=== PATIENT | female | born 1935 | race Caucasian/White ===

== ENCOUNTER 2021-01-12 13:01 | Inpatient (IN) ==
[2021-01-12 15:27] LABS: ABS Basophils 0.1 10^3/ul (0-0.2); ABS Eosinophils 0.1 10^3/ul (0-0.6); ABS Lymphocytes 1.1 10^3/ul (1.0-4.8); ABS Monocytes 0.7 10^3/ul (0-0.8); ABS Neutrophils 17.1 10^3/ul (1.5-7.7); Eosinophil % 0.5 %; Hematocrit 38 % (35-47); Hemoglobin 12.7 g/dL (12.0-16.0); Lymphocyte % 5.5 %; Mean Corpuscular HGB Conc 34 g/dL (31-36); Mean Corpuscular Hemoglobin 31 pg (27-31); Mean Corpuscular Volume 92 fL (80-97); Mean Platelet Volume 9.7 fL (7.4-10.4); Platelet Count 226 10^3/uL (150-450); Red Blood Count 4.14 10^6 /uL (3.70-4.87); Red Cell Distribution Width 15 % (10-15)
[2021-01-12 15:41] LABS: Albumin 4.5 g/dL (3.2-5.2); Albumin/Globulin Ratio 1.7 (1-3); Calcium 9.4 mg/dL (8.6-10.3); EGFR Non-African American 88.4 (>60); Globulin 2.6 g/dL (2-4); Potassium 3.9 mmol/L (3.5-5.0); Total Bilirubin 0.5 mg/dL (0.2-1.0); Total Protein 7.1 g/dL (6.4-8.9)
[2021-01-12] MEDS ORDERED: HYDROcodone/ACETAMIN 5/325 mg TAB PO ONE (16:18)
[2021-01-12] MEDS ORDERED: Albuterol HFA INHALER 8 gm MDI INH PRN (17:17)
[2021-01-12] MEDS: Morphine 2 MG/ML SYRINGE IV PRN (19:10)
[2021-01-12 19:31] LABS: Urine Appearance Clear; Urine Bilirubin Negative (Negative); Urine Blood Negative (Negative); Urine Color Straw; Urine Glucose Negative (Negative); Urine Ketones 2+ (Negative); Urine Nitrite Negative (Negative); Urine Protein Negative (Negative); Urine Specific Gravity 1.009 (1.002-1.030); Urine Urobilinogen Negative (Negative)
[2021-01-12] MEDS: PTO:Multivitamins/Mins AREDS2 (NF) CAP PO SCH (20:34)
[2021-01-12] MEDS: Mometasone 220 MCG MDI INH SCH (20:34)
[2021-01-12] MEDS: Enoxaparin 40 MG/0.4 ML SYR SUBCUT SCH (21:13)
[2021-01-12] MEDS: HYDROcodone/ACETAMIN 5/325 mg TAB PO PRN (23:55)
[2021-01-13] MEDS: Morphine 2 MG/ML SYRINGE IV PRN ×2 (01:59→10:15)
[2021-01-13 04:34] LABS: ABS Lymphocytes 1.2 10^3/ul (1.0-4.8); ABS Monocytes 0.6 10^3/ul (0-0.8); ABS Neutrophils 7.8 10^3/ul (1.5-7.7); Eosinophil % 0.3 %; Hematocrit 33 % (35-47); Hemoglobin 11.5 g/dL (12.0-16.0); Lymphocyte % 12.7 %; Mean Corpuscular HGB Conc 35 g/dL (31-36); Mean Corpuscular Hemoglobin 32 pg (27-31); Mean Corpuscular Volume 91 fL (80-97); Mean Platelet Volume 9.4 fL (7.4-10.4); Platelet Count 193 10^3/uL (150-450); Red Blood Count 3.63 10^6 /uL (3.70-4.87); Red Cell Distribution Width 15 % (10-15); White Blood Count 9.8 10^3/uL (3.5-10.8)
[2021-01-13] MEDS ORDERED: Magnesium Hydroxide LIQ 30 ML UDC PO PRN (07:23)
[2021-01-13] MEDS ORDERED: Senna TAB 8.6 mg TAB PO PRN (07:23)
[2021-01-13] MEDS: HYDROcodone/ACETAMIN 5/325 mg TAB PO PRN ×3 (07:40→20:03)
[2021-01-13] MEDS: Aspirin EC 81 mg TAB.EC (enteric coated) PO SCH ×2 (09:05→15:18)
[2021-01-13] MEDS: RALOXIFENE 60 MG PO SCH (09:05)
[2021-01-13] MEDS: PTO:Multivitamins/Mins AREDS2 (NF) CAP PO SCH ×2 (09:06→21:10)
[2021-01-13] MEDS: Polyethylene Glycol 3350 17 GM PACKET PO SCH (17:35)
[2021-01-13] MEDS: Enoxaparin 40 MG/0.4 ML SYR SUBCUT SCH (17:36)
[2021-01-13] MEDS: Mometasone 220 MCG MDI INH SCH (21:45)
[2021-01-14] MEDS: HYDROcodone/ACETAMIN 5/325 mg TAB PO PRN ×6 (01:53→22:59)
[2021-01-14] MEDS: Calcium/Vitamin D TAB 250/125 TAB PO SCH (08:10)
[2021-01-14] MEDS: RALOXIFENE 60 MG PO SCH (08:11)
[2021-01-14] MEDS: Aspirin EC 81 mg TAB.EC (enteric coated) PO SCH (08:11)
[2021-01-14] MEDS: PTO:Multivitamins/Mins AREDS2 (NF) CAP PO SCH ×2 (08:23→20:25)
[2021-01-14] MEDS ORDERED: Multivitamins/Minera Areds(NF) CAP PO SCH (09:00)
[2021-01-14] MEDS: Morphine 2 MG/ML SYRINGE IV PRN (10:43)
[2021-01-14] MEDS: Lidocaine PATCH 5% PATCH TRANSDERM SCH (17:43)
[2021-01-14] MEDS: Polyethylene Glycol 3350 17 GM PACKET PO SCH (17:43)
[2021-01-14] MEDS: Enoxaparin 40 MG/0.4 ML SYR SUBCUT SCH (17:45)
[2021-01-14] MEDS: Mometasone 220 MCG MDI INH SCH (20:26)
[2021-01-14] MEDS: Lidocaine Patch REMOVE PATCH PATCH OFF SCH (23:01)
[2021-01-15] MEDS: HYDROcodone/ACETAMIN 5/325 mg TAB PO PRN ×5 (04:05→21:48)
[2021-01-15] MEDS: RALOXIFENE 60 MG PO SCH (08:44)
[2021-01-15] MEDS: PTO:Multivitamins/Mins AREDS2 (NF) CAP PO SCH ×2 (08:44→20:07)
[2021-01-15] MEDS: Calcium/Vitamin D TAB 250/125 TAB PO SCH (08:44)
[2021-01-15] MEDS: Lidocaine PATCH 5% PATCH TRANSDERM SCH (08:47)
[2021-01-15] MEDS: Aspirin EC 81 mg TAB.EC (enteric coated) PO SCH (15:37)
[2021-01-15] MEDS: Polyethylene Glycol 3350 17 GM PACKET PO SCH (18:07)
[2021-01-15] MEDS: Enoxaparin 40 MG/0.4 ML SYR SUBCUT SCH (18:08)
[2021-01-15] MEDS: Lidocaine Patch REMOVE PATCH PATCH OFF SCH (20:11)
[2021-01-15] MEDS: Mometasone 220 MCG MDI INH SCH (21:42)
[2021-01-16] MEDS: HYDROcodone/ACETAMIN 5/325 mg TAB PO PRN ×3 (00:57→08:29)
[2021-01-16 06:52] LABS: Hematocrit 33 % (35-47); Hemoglobin 11.3 g/dL (12.0-16.0); Mean Corpuscular HGB Conc 34 g/dL (31-36); Mean Corpuscular Hemoglobin 31 pg (27-31); Mean Corpuscular Volume 92 fL (80-97); Mean Platelet Volume 9.4 fL (7.4-10.4); Platelet Count 170 10^3/uL (150-450); Red Blood Count 3.61 10^6 /uL (3.70-4.87); Red Cell Distribution Width 15 % (10-15)
[2021-01-16 07:08] LABS: Calcium 8.7 mg/dL (8.6-10.3); EGFR African American 122.3 (>60); Potassium 3.4 mmol/L (3.5-5.0)
[2021-01-16 07:49] VITALS: BP 158/71
[2021-01-16] MEDS: Calcium/Vitamin D TAB 250/125 TAB PO SCH (08:28)
[2021-01-16] MEDS: PTO:Multivitamins/Mins AREDS2 (NF) CAP PO SCH (08:29)
[2021-01-16] MEDS: RALOXIFENE 60 MG PO SCH (08:30)
[2021-01-16] MEDS: Lidocaine PATCH 5% PATCH TRANSDERM SCH (08:30)
== END 2021-01-16 09:30 | DRG 552 ==
LOC: ED 13:01 → SSU 13:01 → OBSVTOIN 17:08 → SSU 18:52
PROVIDERS: ADMIT Hospitalist; ATTEND Internal Medicine

== ENCOUNTER 2021-01-16 07:08 | Inpatient (IN) ==
[2021-01-16] MEDS ORDERED: Senna TAB 8.6 mg TAB PO PRN (13:22)
[2021-01-16] MEDS ORDERED: Magnesium Hydroxide LIQ 30 ML UDC PO PRN (13:22)
[2021-01-16] MEDS ORDERED: HYDROcodone/ACETAMIN 5/325 mg TAB PO PRN (13:35)
[2021-01-16] MEDS: HYDROcodone/ACETAMIN 5/325 mg TAB PO PRN ×3 (13:50→21:20)
[2021-01-16] MEDS: Polyethylene Glycol 3350 17 GM PACKET PO SCH (18:17)
[2021-01-16] MEDS: Enoxaparin 40 MG/0.4 ML SYR SUBCUT SCH (18:18)
[2021-01-16] MEDS: Mometasone 220 MCG MDI INH SCH (18:20)
[2021-01-16] MEDS: Calcium/Vitamin D TAB 250/125 TAB PO SCH (21:20)
[2021-01-16] MEDS: NF:Multivitamins/Mins AREDS2 (NF) CAP PO SCH (21:21)
[2021-01-17 07:14] LABS: ABS Eosinophils 0.2 10^3/ul (0-0.6); ABS Lymphocytes 1.3 10^3/ul (1.0-4.8); ABS Monocytes 0.6 10^3/ul (0-0.8); ABS Neutrophils 4.2 10^3/ul (1.5-7.7); Eosinophil % 3.2 %; Hematocrit 33 % (35-47); Hemoglobin 11.2 g/dL (12.0-16.0); Lymphocyte % 20.8 %; Mean Corpuscular HGB Conc 34 g/dL (31-36); Mean Corpuscular Hemoglobin 32 pg (27-31); Mean Corpuscular Volume 94 fL (80-97); Mean Platelet Volume 8.7 fL (7.4-10.4); Platelet Count 181 10^3/uL (150-450); Red Blood Count 3.53 10^6 /uL (3.70-4.87); Red Cell Distribution Width 15 % (10-15); White Blood Count 6.4 10^3/uL (3.5-10.8)
[2021-01-17 07:18] LABS: Albumin 3.5 g/dL (3.2-5.2); Calcium 8.9 mg/dL (8.6-10.3); Potassium 3.5 mmol/L (3.5-5.0); Total Bilirubin 0.5 mg/dL (0.2-1.0)
[2021-01-17 07:24] LABS: Albumin/Globulin Ratio 1.3 (1-3); EGFR African American 115.2 (>60); EGFR Non-African American 95.2 (>60); Globulin 2.6 g/dL (2-4); Total Protein 6.1 g/dL (6.4-8.9)
[2021-01-17] MEDS: RALOXIFENE 60 MG PO SCH (07:28)
[2021-01-17] MEDS: Calcium/Vitamin D TAB 250/125 TAB PO SCH ×2 (07:28→20:07)
[2021-01-17] MEDS: Aspirin EC 81 mg TAB.EC (enteric coated) PO SCH (07:28)
[2021-01-17] MEDS: NF:Multivitamins/Mins AREDS2 (NF) CAP PO SCH ×2 (07:29→20:08)
[2021-01-17] MEDS: HYDROcodone/ACETAMIN 5/325 mg TAB PO PRN ×4 (07:35→21:58)
[2021-01-17] MEDS: Polyethylene Glycol 3350 17 GM PACKET PO SCH (17:39)
[2021-01-17] MEDS: Mometasone 220 MCG MDI INH SCH (17:39)
[2021-01-17] MEDS: Enoxaparin 40 MG/0.4 ML SYR SUBCUT SCH (17:39)
[2021-01-18] MEDS: HYDROcodone/ACETAMIN 5/325 mg TAB PO PRN ×4 (07:21→20:03)
[2021-01-18] MEDS: NF:Multivitamins/Mins AREDS2 (NF) CAP PO SCH ×2 (07:21→20:07)
[2021-01-18] MEDS: Calcium/Vitamin D TAB 250/125 TAB PO SCH ×2 (07:22→20:05)
[2021-01-18] MEDS: RALOXIFENE 60 MG PO SCH (07:22)
[2021-01-18] MEDS: Polyethylene Glycol 3350 17 GM PACKET PO SCH (17:09)
[2021-01-18] MEDS: Mometasone 220 MCG MDI INH SCH (17:10)
[2021-01-18] MEDS: Enoxaparin 40 MG/0.4 ML SYR SUBCUT SCH (17:10)
[2021-01-18] MEDS: Lidocaine Patch REMOVE PATCH PATCH OFF SCH (20:18)
[2021-01-19] MEDS: HYDROcodone/ACETAMIN 5/325 mg TAB PO PRN ×5 (03:13→20:43)
[2021-01-19] MEDS: Aspirin EC 81 mg TAB.EC (enteric coated) PO SCH (07:24)
[2021-01-19] MEDS: Calcium/Vitamin D TAB 250/125 TAB PO SCH ×2 (07:24→20:20)
[2021-01-19] MEDS: NF:Multivitamins/Mins AREDS2 (NF) CAP PO SCH ×2 (07:26→20:20)
[2021-01-19] MEDS: RALOXIFENE 60 MG PO SCH (07:26)
[2021-01-19] MEDS: Lidocaine PATCH 5% PATCH TRANSDERM SCH (10:17)
[2021-01-19] MEDS: Mometasone 220 MCG MDI INH SCH (17:49)
[2021-01-19] MEDS: Enoxaparin 40 MG/0.4 ML SYR SUBCUT SCH (17:49)
[2021-01-19] MEDS: Polyethylene Glycol 3350 17 GM PACKET PO SCH (17:50)
[2021-01-19] MEDS: Lidocaine Patch REMOVE PATCH PATCH OFF SCH (20:25)
[2021-01-20] MEDS: HYDROcodone/ACETAMIN 5/325 mg TAB PO PRN ×5 (01:06→19:49)
[2021-01-20] MEDS: RALOXIFENE 60 MG PO SCH (08:15)
[2021-01-20] MEDS: Lidocaine PATCH 5% PATCH TRANSDERM SCH (08:15)
[2021-01-20] MEDS: Calcium/Vitamin D TAB 250/125 TAB PO SCH ×2 (08:15→19:49)
[2021-01-20] MEDS: NF:Multivitamins/Mins AREDS2 (NF) CAP PO SCH ×2 (08:15→19:50)
[2021-01-20] MEDS: Enoxaparin 40 MG/0.4 ML SYR SUBCUT SCH (17:29)
[2021-01-20] MEDS: Polyethylene Glycol 3350 17 GM PACKET PO SCH (17:31)
[2021-01-20] MEDS: Mometasone 220 MCG MDI INH SCH (18:50)
[2021-01-20] MEDS: Lidocaine Patch REMOVE PATCH PATCH OFF SCH (19:54)
[2021-01-21] MEDS: HYDROcodone/ACETAMIN 5/325 mg TAB PO PRN ×6 (00:03→20:15)
[2021-01-21] MEDS: Calcium/Vitamin D TAB 250/125 TAB PO SCH ×2 (07:56→20:15)
[2021-01-21] MEDS: Lidocaine PATCH 5% PATCH TRANSDERM SCH (07:56)
[2021-01-21] MEDS: Aspirin EC 81 mg TAB.EC (enteric coated) PO SCH (07:56)
[2021-01-21] MEDS: NF:Multivitamins/Mins AREDS2 (NF) CAP PO SCH ×2 (07:57→20:16)
[2021-01-21] MEDS: RALOXIFENE 60 MG PO SCH (07:57)
[2021-01-21] MEDS: Enoxaparin 40 MG/0.4 ML SYR SUBCUT SCH (17:50)
[2021-01-21] MEDS: Mometasone 220 MCG MDI INH SCH (17:51)
[2021-01-21] MEDS: Polyethylene Glycol 3350 17 GM PACKET PO SCH (17:55)
[2021-01-21] MEDS: Lidocaine Patch REMOVE PATCH PATCH OFF SCH (20:28)
[2021-01-22] MEDS: HYDROcodone/ACETAMIN 5/325 mg TAB PO PRN ×4 (02:12→15:59)
[2021-01-22] MEDS: NF:Multivitamins/Mins AREDS2 (NF) CAP PO SCH ×2 (07:23→20:17)
[2021-01-22] MEDS: RALOXIFENE 60 MG PO SCH (07:23)
[2021-01-22] MEDS: Calcium/Vitamin D TAB 250/125 TAB PO SCH ×2 (07:23→20:16)
[2021-01-22] MEDS: Lidocaine PATCH 5% PATCH TRANSDERM SCH (10:29)
[2021-01-22] MEDS: Enoxaparin 40 MG/0.4 ML SYR SUBCUT SCH (17:44)
[2021-01-22] MEDS: Mometasone 220 MCG MDI INH SCH (17:46)
[2021-01-22] MEDS: Polyethylene Glycol 3350 17 GM PACKET PO SCH (18:08)
[2021-01-22] MEDS: oxyCODONE SR 15 mg TAB PO SCH (20:17)
[2021-01-22] MEDS: Lidocaine Patch REMOVE PATCH PATCH OFF SCH (20:46)
[2021-01-23] MEDS: HYDROcodone/ACETAMIN 5/325 mg TAB PO PRN ×2 (02:10→15:54)
[2021-01-23] MEDS: Polyethylene Glycol 3350 17 GM PACKET PO SCH ×2 (06:32→19:42)
[2021-01-23] MEDS: Calcium/Vitamin D TAB 250/125 TAB PO SCH ×2 (07:39→20:04)
[2021-01-23] MEDS: NF:Multivitamins/Mins AREDS2 (NF) CAP PO SCH ×2 (07:39→20:04)
[2021-01-23] MEDS: oxyCODONE SR 15 mg TAB PO SCH ×2 (07:39→20:04)
[2021-01-23] MEDS: RALOXIFENE 60 MG PO SCH (07:39)
[2021-01-23] MEDS: Aspirin EC 81 mg TAB.EC (enteric coated) PO SCH (07:39)
[2021-01-23] MEDS: Lidocaine PATCH 5% PATCH TRANSDERM SCH (13:35)
[2021-01-23] MEDS: Mometasone 220 MCG MDI INH SCH (19:42)
[2021-01-23] MEDS: Enoxaparin 40 MG/0.4 ML SYR SUBCUT SCH (19:42)
[2021-01-23] MEDS: Lidocaine Patch REMOVE PATCH PATCH OFF SCH (20:06)
[2021-01-24] MEDS: HYDROcodone/ACETAMIN 5/325 mg TAB PO PRN ×2 (04:54→11:52)
[2021-01-24 05:57] LABS: ABS Basophils 0.1 10^3/ul (0-0.2); ABS Eosinophils 0.1 10^3/ul (0-0.6); ABS Lymphocytes 1.5 10^3/ul (1.0-4.8); ABS Monocytes 0.5 10^3/ul (0-0.8); ABS Neutrophils 4.9 10^3/ul (1.5-7.7); Eosinophil % 1.2 %; Hematocrit 32 % (35-47); Hemoglobin 11.2 g/dL (12.0-16.0); Lymphocyte % 20.7 %; Mean Corpuscular HGB Conc 35 g/dL (31-36); Mean Corpuscular Hemoglobin 32 pg (27-31); Mean Corpuscular Volume 92 fL (80-97); Mean Platelet Volume 7.6 fL (7.4-10.4); Platelet Count 357 10^3/uL (150-450); Red Blood Count 3.53 10^6 /uL (3.70-4.87); Red Cell Distribution Width 15 % (10-15); White Blood Count 7.1 10^3/uL (3.5-10.8)
[2021-01-24 06:31] LABS: Albumin 3.5 g/dL (3.2-5.2); Albumin/Globulin Ratio 1.5 (1-3); EGFR African American 113.1 (>60); EGFR Non-African American 93.4 (>60); Globulin 2.4 g/dL (2-4); Potassium 4.2 mmol/L (3.5-5.0); Total Bilirubin 0.3 mg/dL (0.2-1.0); Total Protein 5.9 g/dL (6.4-8.9)
[2021-01-24] MEDS: Lidocaine PATCH 5% PATCH TRANSDERM SCH (09:04)
[2021-01-24] MEDS: Calcium/Vitamin D TAB 250/125 TAB PO SCH ×2 (09:04→20:22)
[2021-01-24] MEDS: oxyCODONE SR 15 mg TAB PO SCH ×2 (09:04→20:22)
[2021-01-24] MEDS: NF:Multivitamins/Mins AREDS2 (NF) CAP PO SCH ×2 (09:04→20:22)
[2021-01-24] MEDS: RALOXIFENE 60 MG PO SCH (09:04)
[2021-01-24] MEDS: Enoxaparin 40 MG/0.4 ML SYR SUBCUT SCH (17:52)
[2021-01-24] MEDS: Mometasone 220 MCG MDI INH SCH (17:53)
[2021-01-24] MEDS: Polyethylene Glycol 3350 17 GM PACKET PO SCH (17:53)
[2021-01-24] MEDS: Lidocaine Patch REMOVE PATCH PATCH OFF SCH (20:28)
[2021-01-25] MEDS: HYDROcodone/ACETAMIN 5/325 mg TAB PO PRN ×2 (01:45→14:58)
[2021-01-25] MEDS: Calcium/Vitamin D TAB 250/125 TAB PO SCH ×2 (08:37→20:37)
[2021-01-25] MEDS: NF:Multivitamins/Mins AREDS2 (NF) CAP PO SCH ×2 (08:37→20:38)
[2021-01-25] MEDS: RALOXIFENE 60 MG PO SCH (08:37)
[2021-01-25] MEDS: oxyCODONE SR 15 mg TAB PO SCH ×2 (08:37→20:29)
[2021-01-25] MEDS: Aspirin EC 81 mg TAB.EC (enteric coated) PO SCH (08:37)
[2021-01-25] MEDS: Lidocaine PATCH 5% PATCH TRANSDERM SCH (13:17)
[2021-01-25] MEDS: Mometasone 220 MCG MDI INH SCH (17:50)
[2021-01-25] MEDS: Polyethylene Glycol 3350 17 GM PACKET PO SCH ×2 (17:50→17:52)
[2021-01-25] MEDS: Enoxaparin 40 MG/0.4 ML SYR SUBCUT SCH (17:51)
[2021-01-25] MEDS: Lidocaine Patch REMOVE PATCH PATCH OFF SCH (21:31)
[2021-01-26] MEDS: HYDROcodone/ACETAMIN 5/325 mg TAB PO PRN ×2 (03:34→14:07)
[2021-01-26] MEDS: oxyCODONE SR 15 mg TAB PO SCH ×2 (07:45→20:11)
[2021-01-26] MEDS: Calcium/Vitamin D TAB 250/125 TAB PO SCH ×2 (07:46→20:11)
[2021-01-26] MEDS: Lidocaine PATCH 5% PATCH TRANSDERM SCH (07:48)
[2021-01-26] MEDS: RALOXIFENE 60 MG PO SCH (07:51)
[2021-01-26] MEDS: NF:Multivitamins/Mins AREDS2 (NF) CAP PO SCH ×2 (07:51→20:11)
[2021-01-26] MEDS: Polyethylene Glycol 3350 17 GM PACKET PO SCH (18:19)
[2021-01-26] MEDS: Enoxaparin 40 MG/0.4 ML SYR SUBCUT SCH (18:19)
[2021-01-26] MEDS: Mometasone 220 MCG MDI INH SCH (18:20)
[2021-01-26] MEDS: Lidocaine Patch REMOVE PATCH PATCH OFF SCH (20:14)
[2021-01-27] MEDS: HYDROcodone/ACETAMIN 5/325 mg TAB PO PRN ×2 (03:14→15:50)
[2021-01-27] MEDS: oxyCODONE SR 15 mg TAB PO SCH ×2 (08:12→20:02)
[2021-01-27] MEDS: Calcium/Vitamin D TAB 250/125 TAB PO SCH ×2 (08:12→20:01)
[2021-01-27] MEDS: Aspirin EC 81 mg TAB.EC (enteric coated) PO SCH (08:12)
[2021-01-27] MEDS: NF:Multivitamins/Mins AREDS2 (NF) CAP PO SCH ×2 (08:13→20:01)
[2021-01-27] MEDS: RALOXIFENE 60 MG PO SCH (08:13)
[2021-01-27] MEDS: Lidocaine PATCH 5% PATCH TRANSDERM SCH (09:55)
[2021-01-27] MEDS ORDERED: Bupivacaine 0.25% SDV PF 10 ML VIAL INJ ONE (12:30)
[2021-01-27] MEDS ORDERED: methylPREDNISolone ACETATE 40 mg/ml 1 ml VIAL **not IV IM ONE (12:30)
[2021-01-27] MEDS: Polyethylene Glycol 3350 17 GM PACKET PO SCH (18:29)
[2021-01-27] MEDS: Enoxaparin 40 MG/0.4 ML SYR SUBCUT SCH (18:30)
[2021-01-27] MEDS: Mometasone 220 MCG MDI INH SCH (18:30)
[2021-01-27] MEDS: Lidocaine Patch REMOVE PATCH PATCH OFF SCH (20:09)
[2021-01-28] MEDS: HYDROcodone/ACETAMIN 5/325 mg TAB PO PRN ×2 (03:04→14:12)
[2021-01-28] MEDS: Calcium/Vitamin D TAB 250/125 TAB PO SCH ×2 (08:03→19:52)
[2021-01-28] MEDS: Lidocaine PATCH 5% PATCH TRANSDERM SCH (08:04)
[2021-01-28] MEDS: oxyCODONE SR 15 mg TAB PO SCH ×2 (08:04→19:51)
[2021-01-28] MEDS: NF:Multivitamins/Mins AREDS2 (NF) CAP PO SCH ×2 (08:05→19:52)
[2021-01-28] MEDS: RALOXIFENE 60 MG PO SCH (08:05)
[2021-01-28] MEDS: Enoxaparin 40 MG/0.4 ML SYR SUBCUT SCH (18:14)
[2021-01-28] MEDS: Mometasone 220 MCG MDI INH SCH (18:16)
[2021-01-28] MEDS: Polyethylene Glycol 3350 17 GM PACKET PO SCH (18:16)
[2021-01-28] MEDS: Lidocaine Patch REMOVE PATCH PATCH OFF SCH (20:08)
[2021-01-29] MEDS: HYDROcodone/ACETAMIN 5/325 mg TAB PO PRN ×2 (04:32→16:06)
[2021-01-29] MEDS: Aspirin EC 81 mg TAB.EC (enteric coated) PO SCH (07:25)
[2021-01-29] MEDS: NF:Multivitamins/Mins AREDS2 (NF) CAP PO SCH ×2 (07:25→19:54)
[2021-01-29] MEDS: RALOXIFENE 60 MG PO SCH (07:25)
[2021-01-29] MEDS: Calcium/Vitamin D TAB 250/125 TAB PO SCH ×2 (07:25→19:54)
[2021-01-29] MEDS: oxyCODONE SR 15 mg TAB PO SCH ×2 (07:26→19:54)
[2021-01-29] MEDS: Lidocaine PATCH 5% PATCH TRANSDERM SCH (08:17)
[2021-01-29] MEDS: Mometasone 220 MCG MDI INH SCH (18:02)
[2021-01-29] MEDS: Polyethylene Glycol 3350 17 GM PACKET PO SCH (18:02)
[2021-01-29] MEDS: Enoxaparin 40 MG/0.4 ML SYR SUBCUT SCH (18:03)
[2021-01-29] MEDS: Lidocaine Patch REMOVE PATCH PATCH OFF SCH (19:57)
[2021-01-30] MEDS: HYDROcodone/ACETAMIN 5/325 mg TAB PO PRN ×2 (04:09→16:11)
[2021-01-30] MEDS: oxyCODONE SR 15 mg TAB PO SCH ×2 (07:44→20:01)
[2021-01-30] MEDS: Calcium/Vitamin D TAB 250/125 TAB PO SCH ×2 (07:45→20:01)
[2021-01-30] MEDS: NF:Multivitamins/Mins AREDS2 (NF) CAP PO SCH ×2 (07:45→20:01)
[2021-01-30] MEDS: RALOXIFENE 60 MG PO SCH (07:46)
[2021-01-30] MEDS: Lidocaine PATCH 5% PATCH TRANSDERM SCH (08:25)
[2021-01-30] MEDS: Mometasone 220 MCG MDI INH SCH (17:33)
[2021-01-30] MEDS: Polyethylene Glycol 3350 17 GM PACKET PO SCH (17:33)
[2021-01-30] MEDS: Enoxaparin 40 MG/0.4 ML SYR SUBCUT SCH (17:34)
[2021-01-30] MEDS: Lidocaine Patch REMOVE PATCH PATCH OFF SCH (20:03)
[2021-01-31] MEDS: HYDROcodone/ACETAMIN 5/325 mg TAB PO PRN ×2 (01:50→15:08)
[2021-01-31 05:29] LABS: ABS Basophils 0.1 10^3/ul (0-0.2); ABS Eosinophils 0.1 10^3/ul (0-0.6); ABS Lymphocytes 1.4 10^3/ul (1.0-4.8); ABS Monocytes 0.5 10^3/ul (0-0.8); ABS Neutrophils 4.2 10^3/ul (1.5-7.7); Eosinophil % 0.8 %; Hematocrit 34 % (35-47); Hemoglobin 11.2 g/dL (12.0-16.0); Lymphocyte % 22.8 %; Mean Corpuscular HGB Conc 33 g/dL (31-36); Mean Corpuscular Hemoglobin 30 pg (27-31); Mean Corpuscular Volume 93 fL (80-97); Mean Platelet Volume 7.6 fL (7.4-10.4); Nucleated Red Blood Cells % 0.1; Platelet Count 371 10^3/uL (150-450); Red Blood Count 3.67 10^6 /uL (3.70-4.87); Red Cell Distribution Width 15 % (10-15); White Blood Count 6.2 10^3/uL (3.5-10.8)
[2021-01-31 05:45] LABS: Albumin 3.7 g/dL (3.2-5.2); Albumin/Globulin Ratio 1.5 (1-3); Calcium 9.2 mg/dL (8.6-10.3); EGFR African American 108.9 (>60); Globulin 2.5 g/dL (2-4); Potassium 4.1 mmol/L (3.5-5.0); Total Bilirubin 0.3 mg/dL (0.2-1.0); Total Protein 6.2 g/dL (6.4-8.9)
[2021-01-31] MEDS: oxyCODONE SR 15 mg TAB PO SCH ×2 (08:14→20:18)
[2021-01-31] MEDS: Aspirin EC 81 mg TAB.EC (enteric coated) PO SCH (08:15)
[2021-01-31] MEDS: RALOXIFENE 60 MG PO SCH (08:15)
[2021-01-31] MEDS: Calcium/Vitamin D TAB 250/125 TAB PO SCH ×2 (08:15→20:18)
[2021-01-31] MEDS: NF:Multivitamins/Mins AREDS2 (NF) CAP PO SCH ×2 (08:19→20:19)
[2021-01-31] MEDS: Lidocaine PATCH 5% PATCH TRANSDERM SCH (09:23)
[2021-01-31] MEDS: Mometasone 220 MCG MDI INH SCH (17:58)
[2021-01-31] MEDS: Polyethylene Glycol 3350 17 GM PACKET PO SCH (17:58)
[2021-01-31] MEDS: Enoxaparin 40 MG/0.4 ML SYR SUBCUT SCH (17:58)
[2021-01-31] MEDS: Lidocaine Patch REMOVE PATCH PATCH OFF SCH (21:02)
[2021-02-01] MEDS: HYDROcodone/ACETAMIN 5/325 mg TAB PO PRN ×3 (03:22→12:42)
[2021-02-01 05:55] VITALS: BP 127/76
[2021-02-01] MEDS: RALOXIFENE 60 MG PO SCH (08:15)
[2021-02-01] MEDS: oxyCODONE SR 15 mg TAB PO SCH (08:15)
[2021-02-01] MEDS: Lidocaine PATCH 5% PATCH TRANSDERM SCH (08:15)
[2021-02-01] MEDS: Calcium/Vitamin D TAB 250/125 TAB PO SCH (08:15)
[2021-02-01] MEDS: NF:Multivitamins/Mins AREDS2 (NF) CAP PO SCH (08:22)
== END 2021-02-01 15:11 | DRG 561 ==
LOC: PMRU 09:31
PROVIDERS: ADMIT Physical Medicine & Rehabilitation; ATTEND Physical Medicine & Rehabilitation